=== PATIENT | female | born 1965 | race Caucasian/White ===

== ENCOUNTER → 2021-04-04 10:51 | Outpatient (POV) | payer BC, SELFPAY ==
[2021-04-04 11:26] VITALS: BP 176/80; PULSE 70; RESP 18; O2SAT 97; BMI 28.1
--- NOTE | 2021-04-04 12:40 | HMH.PMCON ---
Assessment and Plan (1) Low back pain Status: Acute Category: Medical Code(s): M54.5 - Low back pain (2) Lumbar radiculopathy Status: Acute Category: Medical Code(s): M54.16 - Radiculopathy, lumbar region (3) Degenerative joint disease (DJD) of lumbar spine Status: Chronic Category: Medical Code(s): M47.816 - Spondylosis without myelopathy or radiculopathy, lumbar region (4) Facet arthropathy, lumbar Status: Chronic Category: Medical Code(s): M47.816 - Spondylosis without myelopathy or radiculopathy, lumbar region (5) Lumbar spondylosis Status: Chronic Category: Medical Code(s): M47.816 - Spondylosis without myelopathy or radiculopathy, lumbar region (6) Neck pain Status: Chronic Category: Medical Code(s): M54.2 - Cervicalgia - Assessment and plan all Dx Assessment and Plan for all problems:: Patient has not had any recent imaging of her lumbar spine. We will schedule her for an MRI of her lumbar spine to determine pathology of her pain. She has not had imaging in greater than 9 years. She has undergone injective therapy in the past with medial branch block/facet joint injections as well as epidurals. She has also had RFA's. She gets significant relief with the injections. She is not interested in oral medications or in surgery. She will continue with home stretching as well as a another short round of physical therapy. She is unable to take anti-inflammatories due to Plavix therapy which is prescribed due to a history of [place]. We will see her back after her MRI to discuss a further plan of care. If her neck pain continues she may need to undergo a cervical MRI in the future. Patient has been instructed to contact the clinic with any concerns before the next appointment. Dr. Alejandra has reviewed this note and agrees with this plan of care. This note was dictated using voice recognition software and make contain errors or omissions. HPI - Data of Consult Patient: new to practice Consult date: 04/04/21 Requesting Physician: Jaqueline Emmanuel APRN Primary Care Provider: Candace Bernardo APRN - Consult Narrative Reason for consult: Chronic low back pain History of present illness: Ms. Pringle is a 55 year old female who presents today for consultation for chronic low back pain. She does have intermittent neck pain as well. She was referred to us by Mari Merrill. Patient says that she was previously seen at a clinic in [place] for chronic low back pain. She did undergo epidural steroid injections as well as medial branch blocks and RFA's. Patient says that her last procedure in [place] was an RFA. Patient has pain in her low back area that is also radiating into her left leg, left groin, and left foot. She reports to be having paresthesia to her second, third, fourth, fifth toe on the left foot. She says sitting too long does cause her leg to have severe numbness. In the past, she was told that she had a herniated disc that was managed with injective therapy. The patient is not interested in oral medications or in surgery. She says that leaning forward worsens her pain. She says when she attempts to bend forward to clean herself after using the restroom, she has significant pain. She was given Robaxin in the past which has not given her much relief. She says her pain was primarily in the left side, however, she is now noticing to be having bilateral hip and groin pain as well. Patient did suffer from a fall in the wintertime, striking her hip when falling. She has not had any imaging since that fall. She says her pain has worsened to her low back area, however, not the hips. She has undergone physical therapy for more than 6 weeks and continues with home stretching. Patient is unable to take anti-inflammatories due to Plavix therapy. She does have a history of an [place]. Her Plavix therapy as prescribed by Dr. Schmitz. Patient says she is unable to hold her grandchildren without having signi
== END ==
PROVIDERS: PCP Nurse Practitioner; Visit Provider Clinical Nurse Specialist Family Health
DX: M54.5 Low back pain (principal); M54.16 Radiculopathy, lumbar region; M47.816 Spondylosis without myelopathy or radiculopathy, lumbar region; M54.2 Cervicalgia
CPT/HCPCS: 99202; G0463

== ENCOUNTER → 2021-04-11 07:52 | Outpatient (CLI) | payer BC, SELFPAY ==
--- NOTE | 2021-04-11 07:54 | MR_ITS ---
PROCEDURE: MR LUMBAR SPINE WO CON CLINICAL INDICATION: BACK PAIN COMPARISON: No exams were available for comparison TECHNIQUE: Multiplanar, multisequence MRI lumbar spine performed without contrast. FINDINGS: Vertebral body heights are maintained.There is no evidence of bone marrow edema or infiltrative process.The conus medullaris terminates at the T12-L1 vertebral body level. Paravertebral soft tissues are unremarkable. Further details by level follow below T12-L1: Bilateral facet joint hypertrophy and small disc bulge causes mild to moderate canal narrowing. There is mild bilateral foraminal narrowing. L1-2: Broad-based disc bulge, bilateral facet joint and ligamentum flavum hypertrophy causes mild canal narrowing. There is mild right foraminal narrowing. Left neural foramina is unremarkable. L2-3: Small broad-based disc bulge and bilateral facet joint hypertrophy is noted causes no significant canal narrowing. There is mild right foraminal narrowing. L3-4: Small broad-based disc bulge at, bilateral facet joint and ligamentum flavum hypertrophy causes moderate canal narrowing with crowding of the nerve roots within the thecal sac. There is moderate to severe bilateral foraminal narrowing. No canal stenosis or neural foraminal narrowing. L4-5: Broad-based disc bulge with annular tear, bilateral facet joint and ligamentum flavum hypertrophy causes mild canal narrowing. There is moderate to severe bilateral foraminal narrowing.. L5-S1: Bilateral facet joint hypertrophy is noted causes posterior thecal sac indentation. Mild bilateral foraminal narrowing. There is no significant canal narrowing. IMPRESSION: Multilevel moderate degenerative changes, worse at L3-4 and L4-5 with moderate to severe bilateral foraminal narrowing as described above. Dictated by: Kathi Christy 04/11/2021 11:11 Kathi Christy in [place] 04/11/2021 11:11
== END ==
PROVIDERS: PCP Nurse Practitioner; Visit Provider Clinical Nurse Specialist Family Health
DX: M54.5 Low back pain (principal)
CPT/HCPCS: 72148; 76376

== ENCOUNTER → 2021-04-18 11:25 | Outpatient (POV) | payer BC, SELFPAY ==
[2021-04-18 11:42] VITALS: BP 179/90; PULSE 64; RESP 18; O2SAT 96; BMI 17.5
--- NOTE | 2021-04-18 12:44 | HMH.PAINSOAP ---
[facility] Pain Management SOAP Note Subjective:: Patient is-year-old white female who presents today for follow-up after an MRI. Patient is being seen in the clinic for degenerative disc disease lumbar spine with lumbar radiculopathy symptoms. Patient is having pain primarily in her low back area with occasional radiation into the left leg. Patient's pain is primarily upon rising from a sitting position and with bending forward and lifting her grandchild. She says that her pain is a 9 out of 10 when bending forward and lifting. She does have to reposition often when standing. She has tried and failed conservative therapies in the past which include physical therapy in the past along with home stretching. She did have more than 6 weeks of physical therapy in the past. Patient is not able to take anti-inflammatories due to anticoagulation therapy. She is on Plavix. Patient will be finishing up her Plavix and will not be continuing the medication, however, she does understand she will need to be off of it 8 days before any injections. She does have pain when bending forward. She has pain with extension and turning at waist. The patient has had medial branch block/facet joint injections in the past and did follow-up with an RFA. She got significant relief for greater than 6 months with the RFA at about 80% relief. She would like to proceed with repeat medial branch blocks. Review of Systems General: No recent weight changes, no fever, no sleep disturbances Respiratory: No cough, , no recurring pulmonary infections Cardiovascular/peripheral vascular: No chest pain, no palpitations, [no edema], no shortness of breath Gastrointestinal: No new onset incontinence, normal bowel movements reported Genitourinary: No new onset incontinence Musculoskeletal: [] Low back pain worse with bending forward Psychiatric: [Normal mood/affect] Neurological: [Denies weakness in extremities], [denies balance issues] Objective:: Physical exam General: Alert and oriented x3, no acute distress, pleasant and cooperative, [on room air] Lungs: Respirations even and unlabored, symmetrical chest expansion Eyes: PERRL Musculoskeletal: Flexion and extension of [] lumbar [spine] somewhat guarded secondary to pain, strength in upper and lower extremities [5/5], [antalgic gait noted], positive Kemps test Neurological: Speech clear, [contact worker equal], no gross sensory deficit Assessment:: Degenerative disc disease lumbar spine with lumbar facet arthropathy and lumbar spondylosis Plan:: We will schedule the patient for medial branch block/facet joint injection at the L3-L4 L4-L5 area bilaterally. She is on Plavix but will be holding this medication. She has been approved to stop the medication by her physician. We will see the patient back in the clinic after medial branch block/facet joint injections to follow-up. She will continue with home stretching. She is unable to take anti-inflammatories due to anticoagulation therapy. Risks and benefits of the procedure have been explained to the patient. Patient would like to proceed with the procedure. Possible side effects of corticosteroids have been discussed with the patient. Patient has been instructed to contact the clinic with any concerns before the next appointment. Dr. Alejandra has reviewed this note and agrees with this plan of care. This note was dictated using voice recognition software and make contain errors or omissions. [facility] History I have reviewed the patient's past medical history: Yes Medical History: Reports:: Hyperlipidemia, Hypertension, Myocardial Infarction *Have you ever received a pneumonia vaccine?: No *Have you received a flu vaccine this season?: Yes Other Surgeries: Yes: Cardiac Catheterization - *Social History Smoking Status: Never smoker Alcohol Intake: never *Occupational Status:: unemployed *Travel in the last 8 weeks: None Family Hx:: No significant family history
== END ==
PROVIDERS: Visit Provider Clinical Nurse Specialist Family Health
DX: M51.36 Other intervertebral disc degeneration, lumbar region (principal); M47.816 Spondylosis without myelopathy or radiculopathy, lumbar region; M54.06 Panniculitis affecting regions of neck and back, lumbar region
CPT/HCPCS: 99212; G0463

== ENCOUNTER 2021-05-06 09:08 | Day surgery (SDC) | payer BC, SELFPAY ==
[2021-05-06 09:20] VITALS: BP 156/66; PULSE 57; RESP 19; TEMP 36.6; O2SAT 98; BMI 28.0
[2021-05-06 09:42] VITALS: BP 136/62; PULSE 57; RESP 18; O2SAT 96
[2021-05-06 09:45] VITALS: BP 107/67; PULSE 54; RESP 18; O2SAT 96
--- NOTE | 2021-05-06 09:58 | HMH.PMPROC ---
- Procedure Date: 05/06/21 Time: 09:58 Anesthesiologist:: Umair Alejandra MD Complications:: None Pre-procedure Diagnosis:: Degenerative disc disease of lumbar spine with lumbar facet arthropathy and lumbar spondylosis Post-procedure Diagnosis:: Same Indications for Procedure:: Patient is a pleasant 55-year-old white female who we have seen for low back pain with lumbar spondylosis and lumbar facet arthropathy. She benefited previously from RF ablation to the facet joint/medial branches of L3-L4 L4-L5 bilaterally. She got 6 months relief from these previous RFA's. This was done at another pain clinic. Her pain has now just started to return. She is off her Plavix. We will do bilateral L3-L4 and L4-L5 medial branch blocks today to see if this helps with her pain symptoms and if she does get benefit which is not long-lasting then we may proceed to RF ablation of the same levels. Procedure Details:: Lumbar medial branch block Informed consent was obtained and the risks and benefits of the procedure was explained to the patient. The back was prepped using ChloraPrep. The skin and subcutaneous tissues were anesthetized using lidocaine. I placed 22-gauge spinal needles into the facet joint/medial branches of L3-L4, L4-L5 bilaterally. Needle placement was confirmed with dye. After this we injected 3 mL bupivacaine 0.25% and Depo-Medrol 20 mg into each facet joint/medial branch of L3-L4, L4-L5 bilaterally. We used a total of 80 mg Depo-Medrol for both levels bilaterally. The patient tolerated the procedure well with no complications. Plan and Disposition:: We'll follow-up with her in 2 weeks. Will reevaluate her symptoms at that time. If she does get benefit but it does not last long then we will proceed with RF ablation to the same levels
[2021-05-06 10:00] VITALS: BP 150/59; PULSE 56; RESP 20; O2SAT 98
== END 2021-05-06 10:01 | disposition home or self-care (01) ==
LOC: SC.PAINP 09:12
PROVIDERS: PCP Nurse Practitioner; Visit Provider Anesthesiology
DX: M51.36 Other intervertebral disc degeneration, lumbar region (principal); M47.816 Spondylosis without myelopathy or radiculopathy, lumbar region; M54.06 Panniculitis affecting regions of neck and back, lumbar region
CPT/HCPCS: 64493; 64494; J1030; Q9966

== ENCOUNTER → 2021-06-09 09:09 | Outpatient (POV) | payer BC, SELFPAY ==
[2021-06-09 09:26] VITALS: BP 204/99; PULSE 48; RESP 18; O2SAT 97; BMI 28.0
--- NOTE | 2021-06-09 12:48 | HMH.PAINSOAP ---
[facility] Pain Management SOAP Note Subjective:: Patient is a 55-year-old white female who presents today for follow-up. She recently underwent a medial branch block at L3-L4 L4-L5 bilaterally. She is being treated for degenerative disc disease lumbar spine with lumbar facet arthropathy and lumbar spondylosis. Patient reports that she got significant relief, at 60% for 5 days following the injections. The patient's pain has returned. She feels a grinding type sensation when leaning forward, extending at her waist and with turning and twisting. She says this pain did subside following the injection. She would like to repeat the medial branch block to these areas in hopes of proceeding with an RFA. She has tried and failed conservative therapies of physical therapy for greater than 6 weeks along with continued home stretching. She has also taken anti-inflammatories in the past, but is no longer taking the medication at the advice of her PCP. The patient has resumed antiinflammatories. She rates her pain a 3 out of 10 with sitting and a 7 or an 8 out of 10 with bending forward. Review of Systems General: No recent weight changes, no fever, no sleep disturbances Respiratory: No cough, no shortness of air, no recurring pulmonary infections Cardiovascular/peripheral vascular: No chest pain, no palpitations, no edema, no shortness of breath Gastrointestinal: No new onset incontinence, normal bowel movements reported Genitourinary: No new onset incontinence Musculoskeletal: Low back pain with worsening pain leaning forward, turning and twisting at waist Psychiatric: [Normal mood/affect] Neurological: [Denies weakness in extremities], [denies balance issues] Objective:: Physical exam General: Alert and oriented x3, no acute distress, pleasant and cooperative, [on room air] Lungs: Respirations even and unlabored, symmetrical chest expansion Eyes: PERRL Musculoskeletal: Flexion and extension of lumbar [spine] somewhat guarded secondary to pain, strength in upper and lower extremities [5/5], [antalgic gait noted], positive Kemps test Neurological: Speech clear, [bellman equal], no gross sensory deficit Assessment:: Degenerative disc disease lumbar spine with lumbar facet arthropathy and lumbar spondylosis Plan:: We will schedule the patient for repeat injection at L3-L4 L4-L5 medial branch block bilaterally. Patient is no longer on anticoagulation therapy. If the patient gets at least 60% relief, we will proceed with RFA. She has tried physical therapy along with continued home stretching and most recently anti-inflammatories. She is not on any anticoagulation therapy. Possible side effects of corticosteroids have been discussed with the patient. Risks and benefits of the procedure have been explained to the patient. Patient would like to proceed with the procedure. Patient has been instructed to contact the clinic with any concerns before the next appointment. Dr. Alejandra has reviewed this note and agrees with this plan of care. This note was dictated using voice recognition software and make contain errors or omissions. [facility] History I have reviewed the patient's past medical history: Yes Medical History: Reports:: Coronary Artery Disease, Hyperlipidemia, Hypertension, Myocardial Infarction, Peripheral Artery Disease, Peripheral Vascular Disease Denies:: Cancer, Diabetes Mellitus Type 1, Diabetes Mellitus Type 2, MRSA, Seizures *Have you ever received a pneumonia vaccine?: No *Have you received a flu vaccine this season?: No Other Medical History: Denies: Blood Transfusion Reaction Other Surgeries: Yes: Cardiac Catheterization, Coronary Stent, Other (eye sx, uterine ablation) Amputation: No Fractures: No - *Social History Smoking Status: Never smoker Alcohol Intake: never *Occupational Status:: unemployed Housing: house *Travel in the last 8 weeks: None Family Hx:: No significant family history
== END ==
PROVIDERS: Visit Provider Clinical Nurse Specialist Family Health
DX: M51.36 Other intervertebral disc degeneration, lumbar region (principal); M47.816 Spondylosis without myelopathy or radiculopathy, lumbar region; M54.06 Panniculitis affecting regions of neck and back, lumbar region
CPT/HCPCS: 99212; G0463

== ENCOUNTER 2021-06-17 08:08 | Day surgery (SDC) | payer BC, SELFPAY ==
[2021-06-17 08:18] VITALS: BP 153/99; PULSE 66; RESP 18; TEMP 36.4; O2SAT 98; BMI 28.0
[2021-06-17 09:02] VITALS: BP 146/74; PULSE 73; RESP 18; O2SAT 98
[2021-06-17 09:04] VITALS: BP 153/75; PULSE 63; RESP 18; O2SAT 97
[2021-06-17 09:16] VITALS: BP 174/98; PULSE 69; RESP 20; O2SAT 97
--- NOTE | 2021-06-17 09:16 | HMH.PMPROC ---
- Procedure Date: 06/17/21 Time: 09:16 Anesthesiologist:: Umair Alejandra MD Complications:: None Pre-procedure Diagnosis:: Degenerative disc disease of lumbar spine with lumbar facet arthropathy and lumbar spondylosis Post-procedure Diagnosis:: Same Indications for Procedure:: Patient is a pleasant 55-year-old white female who we are treating for low back pain with lumbar spondylosis and lumbar facet arthropathy. She got great relief from her previous medial branch blocks. She was 70 to 80% better for 5 to 6 days. We will do a repeat round of medial branch blocks at L3-4 and L4-L5 bilaterally. These will be followed by RF ablation if successful. Procedure Details:: Lumbar medial branch block Informed consent was obtained and the risks and benefits of the procedure was explained to the patient. The back was prepped using ChloraPrep. The skin and subcutaneous tissues were anesthetized using lidocaine. I placed 22-gauge spinal needles into the facet joint/medial branches of L3-L4, L4-L5 bilaterally. Needle placement was confirmed with dye. After this we injected 3 mL bupivacaine 0.25% and Depo-Medrol 20 mg into each facet joint/medial branch of L3-L4, L4-L5 bilaterally. We used a total of 80 mg Depo-Medrol for both levels bilaterally. The patient tolerated the procedure well with no complications. Plan and Disposition:: We will follow-up with this patient in 2 weeks. Will reevaluate her symptoms at that time. If these are successful again we will plan on RF ablation to the facet joints of L3-4 and L4-5 bilaterally.
== END 2021-06-17 09:18 | disposition home or self-care (01) ==
LOC: SC.PAINP 08:09
PROVIDERS: PCP Nurse Practitioner; Visit Provider Anesthesiology
DX: M51.36 Other intervertebral disc degeneration, lumbar region (principal); M47.816 Spondylosis without myelopathy or radiculopathy, lumbar region; M54.06 Panniculitis affecting regions of neck and back, lumbar region; I25.2 Old myocardial infarction; I25.10 Atherosclerotic heart disease of native coronary artery without angina pectoris; I73.9 Peripheral vascular disease, unspecified; E78.5 Hyperlipidemia, unspecified; I10 Essential (primary) hypertension; K21.9 Gastro-esophageal reflux disease without esophagitis
CPT/HCPCS: 64493; 64494; J1040; Q9966

== ENCOUNTER → 2021-07-04 11:15 | Outpatient (POV) | payer BC, SELFPAY ==
[2021-07-04 11:25] VITALS: BP 121/64; PULSE 68; RESP 18; O2SAT 98; BMI 28.7
--- NOTE | 2021-07-04 12:39 | HMH.PAINSOAP ---
[facility] Pain Management SOAP Note Subjective:: Patient is a 55-year-old white female who presents today for follow-up after medial branch block/facet joint injections at L3-L4 L4-L5 bilaterally. Patient is a patient number 2 injection. The patient got 70 to 80% relief for 3 to 4 days following the injection. The patient's pain has returned. The patient says that she was able to stand and turn and twist with less pain following the injections. The patient's pain has returned. She rates her pain a 3 out of 10 with sitting, with movement or extension bending at waist, the pain is a 7 or an 8 out of 10. Patient has tried and failed conservative therapies of physical therapy for more than 6 weeks and continued home stretching. She has taken anti-inflammatories in the past with no significant relief and has used ice and heat therapies with no significant relief. Patient is no longer on anti-inflammatories. Review of Systems General: No recent weight changes, no fever, no sleep disturbances Respiratory: No cough, no shortness of air, no recurring pulmonary infections Cardiovascular/peripheral vascular: No chest pain, no palpitations, no edema, no shortness of breath Gastrointestinal: No new onset incontinence, normal bowel movements reported Genitourinary: No new onset incontinence Musculoskeletal: Low back pain worse with bending forward and extension and twisting at waist Psychiatric: [Normal mood/affect] Neurological: [Denies weakness in extremities], [denies balance issues] Objective:: Physical exam General: Alert and oriented x3, no acute distress, pleasant and cooperative Lungs: Respirations even and unlabored, symmetrical chest expansion Eyes: PERRL Musculoskeletal: Flexion and extension of lumbar [spine] somewhat guarded secondary to pain, [antalgic gait noted], positive Kemps test Neurological: Speech clear, no gross sensory deficit Assessment:: Degenerative disc disease lumbar spine with lumbar facet arthropathy and lumbar spondylosis Plan:: Patient is a 55-year-old white female who is following up after number 2 injection medial branch block/facet joint L3-L4 L4-L5 bilaterally. She got 70 to 80% relief for a few days. The patient's pain has returned. She would like to proceed with an RFA. We will schedule the patient for an RFA L3-L4 L4-L5 bilaterally. She is not on anticoagulation therapy. We will follow up with her after the procedure for reevaluation symptoms. Risks and benefits of the procedure have been explained to the patient. Patient would like to proceed with the procedure. Patient has been instructed to contact the clinic with any concerns before the next appointment. Dr. Alejandra has reviewed this note and agrees with this plan of care. This note was dictated using voice recognition software and make contain errors or omissions. [facility] History I have reviewed the patient's past medical history: Yes Medical History: Reports:: Coronary Artery Disease, Hyperlipidemia, Hypertension, Myocardial Infarction, Peripheral Artery Disease, Peripheral Vascular Disease Denies:: Cancer, Diabetes Mellitus Type 1, Diabetes Mellitus Type 2, MRSA, Seizures *Have you ever received a pneumonia vaccine?: No *Have you received a flu vaccine this season?: No Other Medical History: Denies: Blood Transfusion Reaction Other Surgeries: Yes: Cardiac Catheterization, Coronary Stent, Other (eye sx, uterine ablation) Amputation: No Fractures: No - *Social History Smoking Status: Never smoker Alcohol Intake: never *Occupational Status:: unemployed Housing: house *Travel in the last 8 weeks: None Family Hx:: No significant family history
== END ==
PROVIDERS: Visit Provider Clinical Nurse Specialist Family Health
DX: M51.36 Other intervertebral disc degeneration, lumbar region (principal); M47.816 Spondylosis without myelopathy or radiculopathy, lumbar region; M54.06 Panniculitis affecting regions of neck and back, lumbar region
CPT/HCPCS: 99212; G0463

== ENCOUNTER 2021-07-22 11:23 | Day surgery (SDC) | payer BC, SELFPAY ==
[2021-07-22 11:28] VITALS: BP 139/57; PULSE 66; RESP 18; TEMP 36.3; O2SAT 96; BMI 29.2
[2021-07-22 12:27] VITALS: BP 134/70; PULSE 62; RESP 18; O2SAT 97
[2021-07-22 12:33] VITALS: BP 138/75; PULSE 62; RESP 18; O2SAT 98
--- NOTE | 2021-07-22 12:34 | P.PCN_ITS ---
- Procedure Date: 07/22/21 Time: 12:34 Anesthesiologist:: Umair Alejandra MD Complications:: None Pre-procedure Diagnosis:: Degenerative disc disease of lumbar spine with lumbar spondylosis and lumbar facet arthropathy Post-procedure Diagnosis:: Same Indications for Procedure:: Patient is a pleasant 55-year-old white female who we are treating for low back pain with lumbar spondylosis and lumbar facet arthropathy. She did well following previous medial branch blocks with 80% relief for 3 to 4 days following the injection. She had 2 rounds of successful medial branch block she presents for RF ablation to the facet joints of L3-L4 and L4-5 bilaterally today. Procedure Details:: Lumbar RFA informed consent was obtained and the risk and benefits of the procedure was explained to the patient. Patient was placed prone on the procedure table. The patient was prepped and draped in sterile fashion. C-arm fluoroscopy was used to view the lumbar spine. The skin and subcutaneous tissues were anesthetized using lidocaine. I placed 20-gauge RF needles into the facet joints of L3-L4 and L4-L5 bilaterally. We underwent sensory stimulation. There is good sensory stimulation at 0.8 V. We underwent motor stimulation. There is no motor stimulation at 2 V. We then anesthetized these levels with lidocaine and Depo- Medrol. I used a total of 80 mg Depo-Medrol for both levels. I then burned both levels of L3-4 and L4-L5 bilaterally for 4 minutes at 80 ?C. Patient tolerated the procedure well with no complication. Plan and Disposition:: We will follow-up with her in 2 weeks. Will reevaluate symptoms at that time.
[2021-07-22 12:49] VITALS: BP 131/63; PULSE 54; RESP 18; O2SAT 99
== END 2021-07-22 12:50 | disposition home or self-care (01) ==
LOC: SC.PAINP 11:23
PROVIDERS: PCP Nurse Practitioner; Visit Provider Anesthesiology
DX: M51.16 Intervertebral disc disorders with radiculopathy, lumbar region (principal); M54.06 Panniculitis affecting regions of neck and back, lumbar region; I25.2 Old myocardial infarction; I25.10 Atherosclerotic heart disease of native coronary artery without angina pectoris; I73.9 Peripheral vascular disease, unspecified; E78.5 Hyperlipidemia, unspecified; I10 Essential (primary) hypertension; Z88.0 Allergy status to penicillin
CPT/HCPCS: 64635; 64636; J1040

== ENCOUNTER → 2021-08-11 09:47 | Outpatient (POV) | payer BC, SELFPAY ==
[2021-08-11 10:01] VITALS: BP 132/90; PULSE 78; RESP 18; O2SAT 98; BMI 30.3
--- NOTE | 2021-08-11 12:18 | HMH.PAINSOAP ---
[facility] Pain Management SOAP Note Subjective:: Patient is a 56-year-old white female who presents today for follow-up. Patient recently underwent an RFA at L3-L4 L4-L5 bilaterally. She reports she got no relief with the RFA. She is continuing to have significant pain in the low back area made worse with bending forward. She says that she does work 8-hour days at her job and is unable to stand or walk when she gets home due to the pain. Pain is progressively worsening. She has tried anti-inflammatories along with continued home stretching. She also underwent physical therapy which worsen the patient's pain for greater than 6 weeks. She has had a lumbar epidural steroid injection that did give her some relief at about 60 to 70%. Patient says that she would like to try a repeat lumbar epidural steroid injection. She is having difficulty cleaning herself properly when going to the bathroom due to pain with movement. She says that she got more relief with the epidural steroid injections than with the RFA. She has had 1 lumbar epidural steroid injection in the past. She would like to proceed with a repeat injection. Review of Systems General: No recent weight changes, no fever, no sleep disturbances Respiratory: No cough, no shortness of air, no recurring pulmonary infections Cardiovascular/peripheral vascular: No chest pain, no palpitations, no edema, no shortness of breath Gastrointestinal: No new onset incontinence, normal bowel movements reported Genitourinary: No new onset incontinence Musculoskeletal: Low back pain with radiation into bilateral lower extremities, pain worse with bending forward Psychiatric: [Normal mood/affect] Neurological: [Denies weakness in extremities], [denies balance issues] Objective:: Physical exam General: Alert and oriented x3, no acute distress, pleasant and cooperative Lungs: Respirations even and unlabored, symmetrical chest expansion Eyes: PERRL Musculoskeletal: Flexion and extension of lumbar [spine] somewhat guarded secondary to pain, [antalgic gait noted] Neurological: Speech clear, no gross sensory deficit Assessment:: Degenerative disc disease lumbar spine with lumbar radiculopathy symptoms, lumbar spondylosis and lumbar facet arthropathy Plan:: Patient has tried medial branch blocks and RFA with minimal relief. She has had 1 lumbar epidural steroid injection which gave her 60 to 70% relief for approximately 2 weeks. She would like to proceed with a repeat lumbar epidural steroid injection at L4-L5. In the meantime, we will also schedule the patient for psychological evaluation, as spinal cord stimulation may be an option for her in the future if she does not get relief with the epidural. We did discuss in detail the device. She would like to proceed with the trial if she does have an appropriate psychological evaluation. She is tried physical therapy for more than 6 weeks and continues with home stretching. She is also tried anti-inflammatories. We will plan to follow-up with the patient after her injection and psychological evaluation to discuss a further plan of care. Patient has been advised that she is not a neurosurgical candidate at this time. We will schedule the patient for the lumbar epidural steroid injection L4-L5. She is not on any anticoagulation therapy and is not diabetic. This will be the patient's #2 lumbar epidural steroid injection. Possible side effects of corticosteroids have been discussed with the patient. Risks and benefits of the procedure have been explained to the patient. Patient would like to proceed with the procedure. Patient has been instructed to contact the clinic with any concerns before the next appointment. Dr. Alejandra has reviewed this note and agrees with this plan of care. This note was dictated using voice recognition software and make contain errors or omissions. [facility] History I have reviewed the patient's past medical history: Yes M
== END ==
PROVIDERS: Visit Provider Clinical Nurse Specialist Family Health
DX: M51.16 Intervertebral disc disorders with radiculopathy, lumbar region (principal); M54.06 Panniculitis affecting regions of neck and back, lumbar region; M47.896 Other spondylosis, lumbar region
CPT/HCPCS: 99212; G0463

== ENCOUNTER 2021-09-02 12:54 | Day surgery (SDC) | payer BC, SELFPAY ==
[2021-09-02 12:58] VITALS: BP 144/74; PULSE 65; RESP 18; TEMP 36.2; O2SAT 97; BMI 30.7
[2021-09-02 13:20] VITALS: BP 139/87; PULSE 77; RESP 18; O2SAT 97
[2021-09-02 13:21] VITALS: BP 139/87; PULSE 79; RESP 18; O2SAT 97
--- NOTE | 2021-09-02 13:25 | HMH.PMPROC ---
- Procedure Date: 09/02/21 Time: 13:25 Anesthesiologist:: Umair Alejandra MD Complications:: None Pre-procedure Diagnosis:: Degenerative disc disease of lumbar spine with lumbar radiculopathy symptoms Post-procedure Diagnosis:: Same Indications for Procedure:: Patient is a pleasant 56-year-old white female who we are treating for low back pain with lumbar radiculopathy symptoms. She does get some relief from these injections however is not been long-lasting. She did have lumbar RFA at her last visit which did not give her much relief of her symptoms. We will do a repeat lumbar epidural steroid injection today to see if this gives her some relief of her symptoms. We will also set her up for psychological evaluation in anticipation of spinal cord stimulator trial. Procedure Details:: Informed consent was obtained and the risk and benefits of the procedure was explained to the patient. The patient was taken to the procedure room. The patient was placed prone on the procedure table. The patient was prepped and draped in sterile fashion. C-arm fluoroscopy was used to view the lumbar spine. Skin and subcutaneous tissues were anesthetized using lidocaine. I placed an 18-gauge epidural needle and advanced into the L4-L5 interspace using fluoroscopic guidance and [id number] to air. After confirmation of needle placement in the epidural space with dye I injected 2 mL of lidocaine 1.5% with Depo-Medrol 80 mg. Patient tolerated the procedure well with no complications. Plan and Disposition:: We will follow-up with her in 2 weeks. Will reevaluate symptoms at that time. We will get her information on spinal cord stimulation and set her up for psychological evaluation. If this injection does not give her long-lasting relief we will plan on spinal cord stimulator trial.
[2021-09-02 13:35] VITALS: BP 128/63; PULSE 64; RESP 20; O2SAT 95
== END 2021-09-02 13:36 | disposition home or self-care (01) ==
LOC: SC.PAINP 12:55
PROVIDERS: PCP Nurse Practitioner; Visit Provider Anesthesiology
DX: M51.16 Intervertebral disc disorders with radiculopathy, lumbar region (principal); I25.2 Old myocardial infarction; I25.10 Atherosclerotic heart disease of native coronary artery without angina pectoris; I73.9 Peripheral vascular disease, unspecified; E78.5 Hyperlipidemia, unspecified; I10 Essential (primary) hypertension; Z72.0 Tobacco use; Z79.899 Other long term (current) drug therapy; Z88.0 Allergy status to penicillin
CPT/HCPCS: 62323; J1040; Q9966

== ENCOUNTER → 2021-09-22 10:24 | Outpatient (POV) | payer BC, SELFPAY ==
[2021-09-22 10:35] VITALS: BP 119/80; PULSE 68; RESP 18; O2SAT 96; BMI 30.7
--- NOTE | 2021-09-22 12:02 | HMH.PAINSOAP ---
[facility] Pain Management SOAP Note Subjective:: Patient is a 56-year-old white female who presents today for follow-up after a lumbar epidural steroid injection. Patient has had injective therapy with medial branch blocks/lumbar epidural steroid injections, and RFA. She has gotten short-term relief, but pain does return. She is having pain in her low back area with radiation into bilateral lower extremities. She says bending forward makes pain worse. She is having difficulty cleaning herself properly after bowel movements due to turning and twisting. She says this is her greatest concern. While she does have pain, she says that it is affecting her mental health as well. She is having significant pain today at about a 7 or 8 out of 10 when moving. She did discuss spinal cord stimulation with Dr. Alejandra for long-term relief. She has tried oral medications along with previous surgical intervention lumbar spine. She is no longer considered a surgical candidate. She has tried physical therapy for more than 6 weeks in the past and continues with home stretching. Injective therapy has not given her any long-term relief. She did undergo psychological evaluation and was considered an appropriate candidate. She is here today to discuss proceeding with the stimulator trial. Review of Systems General: No recent weight changes, no fever, no sleep disturbances Respiratory: No cough, no shortness of air, no recurring pulmonary infections Cardiovascular/peripheral vascular: No chest pain, no palpitations, no edema, no shortness of breath Gastrointestinal: No new onset incontinence, normal bowel movements reported Genitourinary: No new onset incontinence Musculoskeletal: Low back pain made worse with bending forward, difficulty with perineal care due to pain Psychiatric: [Normal mood/affect] Neurological: [Denies weakness in extremities], [denies balance issues] Objective:: Physical exam General: Alert and oriented x3, no acute distress, pleasant and cooperative Lungs: Respirations even and unlabored, symmetrical chest expansion Eyes: PERRL Musculoskeletal: Flexion and extension of lumbar [spine] somewhat guarded secondary to pain, [antalgic gait noted] Neurological: Speech clear, no gross sensory deficit Assessment:: Degenerative disc disease lumbar spine with lumbar radiculopathy symptoms, facet arthropathy and lumbar spondylosis Plan:: We will schedule the patient for the spinal cord stimulator trial. She has tried conservative therapies of physical therapy, home stretching, oral medications, and injections. She has had surgical intervention to her lumbar spine in the past and continues to have pain. She is not considered a neurosurgical candidate at this time. She is not on any anticoagulation therapy and is not diabetic. We will schedule her for spinal cord stimulator trial and plan to see her back afterwards for further evaluation of symptoms. We did discuss in detail the procedure today. Psychological evaluation did deemed the patient appropriate candidate to proceed. Risks and benefits of the procedure have been explained to the patient. Patient would like to proceed with the procedure. Patient has been instructed to contact the clinic with any concerns before the next appointment. Dr. Alejandra has reviewed this note and agrees with this plan of care. This note was dictated using voice recognition software and make contain errors or omissions. [facility] History I have reviewed the patient's past medical history: Yes Medical History: Reports:: Carotid Stenosis, Coronary Artery Disease, Hyperlipidemia, Hypertension, Myocardial Infarction, Peripheral Artery Disease, Peripheral Vascular Disease Denies:: Cancer, Diabetes Mellitus Type 1, Diabetes Mellitus Type 2, MRSA, Seizures *Have you ever received a pneumonia vaccine?: No *Have you received a flu vaccine this season?: Yes Other Medical History: Denies: Blood Transfusion Reaction O
== END ==
PROVIDERS: Visit Provider Clinical Nurse Specialist Family Health
DX: M51.16 Intervertebral disc disorders with radiculopathy, lumbar region (principal); M54.02 Panniculitis affecting regions of neck and back, cervical region; M47.896 Other spondylosis, lumbar region
CPT/HCPCS: 99212; G0463

== ENCOUNTER → 2021-11-07 13:55 | Outpatient (CLI) | payer BC, SELFPAY ==
[2021-11-07 14:17] LABS: Basophils # 0.1 K/mm3 (0-0.2); Basophils % 0.9 % (0.1-2.0); Eosinophils # 0.2 K/mm3 (0.0-0.4); Hematocrit 44.1 % (37.0-47.0); Lymphocytes % 25.4 % (10-50); Mean Corpuscular HGB Conc 31.7 g/dL (31.8-35.4); Mean Corpuscular Hemoglobin 28.8 pg (27.0-31.2); Mean Platelet Volume 8.4 fl (7.4-10.4); Monocytes # 0.6 K/mm3 (0.1-1.0); Monocytes % 7.4 % (1.7-9.3); Neutrophils # 5.1 K/mm3 (1.8-7.8); Neutrophils % 63.3 % (37.0-80.0); Platelet Count 315 K/mm3 (142-424); Red Blood Count 4.85 M/mm3 (4.20-5.40); Red Cell Distribution Width 13.6 % (11.5-17.5)
[2021-11-07 15:14] LABS: Blood Urea Nitrogen 16 mg/dl (7-17); Chloride 107 mmol/L (98-107); Estimated Glomerular Filt Rate 74 ml/min (>60); GFR (African American) 89 ML/MIN (>60); Glucose 95 mg/dl (74-100); Potassium 4.3 mmoL/L (3.5-5.1)
[2021-11-07 17:04] LABS: Anion Gap 10.3 mEq/L (5-15); Calcium 9.2 mg/dl (8.4-10.2); Carbon Dioxide 28 mmol/L (22.0-30.0); Sodium 141 mmol/L (136-145)
== END ==
PROVIDERS: PCP Pediatrics; Visit Provider Anesthesiology
DX: Z01.812 Encounter for preprocedural laboratory examination (principal); Z11.52 Encounter for screening for COVID-19; M51.36 Other intervertebral disc degeneration, lumbar region
CPT/HCPCS: 36415; 80048; 85025; C9803; U0003; U0005

== ENCOUNTER 2021-11-09 11:01 | Day surgery (SDC) | payer BC, SELFPAY ==
[2021-11-07 11:52] VITALS: BMI 30.5
[2021-11-09 11:26] VITALS: BP 121/65; PULSE 82; RESP 16; TEMP 36.4; O2SAT 100
--- NOTE | 2021-11-09 12:27 | P.PN_ITS ---
[facility] Anesthesia Checklist - Patient Identification Patient Identification: Arm Band - Structural Data Admitted From: Home Planned Operative Procedure/s: Trial Neurostimulator Lead Placement Consent for Planned Operative Procedure(s) Verified: Yes Verified Documents: Surgical Consent, History and Physical - NPO Status Verified Time NPO: 00:00 - Additional verifications Anesthesia Reactions: Yes (pt states I do not wake up well from it ) Hx Blood Transfusions: No Blood Transfusion Reaction: No - Airway Assessment C-Spine Mobility Assessed: Yes (mp2) TMJ Mobility Assessed: Yes Dentition: Good Dentition - Neurological Assessment Level of Consciousness: Awake, Alert - Anesthesia Plan Anesthesia Risk discussed: Yes Anesthesia Plan: Verified ASA Class: III Anesthesia Type: MAC [facility] History I have reviewed the patient's past medical history: Yes Medical History: Reports:: Carotid Stenosis, Coronary Artery Disease, Hyperlipidemia, Hypertension, Myocardial Infarction, Peripheral Artery Disease, Peripheral Vascular Disease Denies:: Cancer, Diabetes Mellitus Type 1, Diabetes Mellitus Type 2, Internal Pacemaker, MRSA, Seizures *Have you ever received a pneumonia vaccine?: No *Have you received a flu vaccine this season?: Yes Other Medical History: Denies: Blood Transfusion Reaction Anesthesia experience/problems:: nac Other Surgeries: Yes: Cardiac Catheterization, Coronary Stent, Other (eye sx, uterine ablation). No: Pacemaker Amputation: No Fractures: No - *Social History Last grade of school completed: High school graduate Smoking Status: Never smoker Alcohol Intake: never Substance Use Type: denies use *Occupational Status:: unemployed Housing: house Household Members: none *Travel in the last 8 weeks: None Family Hx:: No significant family history
[2021-11-09 14:31] VITALS: BP 97/56; PULSE 70; RESP 16; TEMP 36.4; O2SAT 97
[2021-11-09 14:46] VITALS: BP 89/60; PULSE 65; RESP 16; O2SAT 99
--- NOTE | 2021-11-09 14:54 | PC.NURSE ---
trial rep at bedside
[2021-11-09 15:01] VITALS: BP 107/69; PULSE 55; RESP 16; O2SAT 99
[2021-11-09 15:18] VITALS: BP 107/70; PULSE 56; RESP 16; O2SAT 100
--- NOTE | 2021-11-09 15:48 | P.OP_ITS ---
Date of procedure: 11/09/21 Pre-op Diagnosis:: Degenerative disc disease of lumbar spine with lumbar radiculopathy symptoms and facet arthropathy with lumbar spondylosis Post-op Diagnosis:: Same Procedure performed:: Spinal cord stimulator lead placement epidural x2 for spinal cord stimulator trial Surgeon:: Umair Alejandra MD LINK KNITTING MACHINE OPERATOR:: Obinna Beverly Anesthesia: MAC Estimated blood loss (mL): 1 Clinical Note:: Patient is a pleasant 56-year-old white female who we are treating for low back pain with lumbar radiculopathy symptoms. She has increasing pain in her back radiating to both buttocks and down her left leg. She has tried and failed all conservative therapy including injections, oral medications, physical therapy and she is not a surgical candidate. She has had a successful psychological evaluation. She presents for spinal cord stimulator trial today. Operative findings:: None Operative note:: Informed consent was obtained the risk and benefits of the procedure were explained to the patient. Patient was taken to the operating room placed prone on the procedure table. She was prepped and draped in sterile fashion. C-arm fluoroscopy was used to view the lumbar spine. The skin and subcutaneous tissues were anesthetized using lidocaine. A 17-gauge epidural needle was inserted advanced into the L2-L3 interspace. After confirmation needle placement in the epidural space stimulating lead was inserted and advanced very easily to the T7-T8-T9 vertebral body. A second needle was then inserted advanced again into the L2-L3 interspace. Again after confirmation of needle placement in the epidural space a second stimulating lead was inserted and advanced again very easily to the T7-T8-T9 vertebral body. Leads were checked in AP and lateral views. The needles and stylets were removed. The leads were secured in place. Patient tolerated the procedure well with no complications. Patient was programmed by the [employer] sales representative with good stimulation in all areas of pain. Patient was discharged home neurologically intact with good relief of pain symptoms. Plan and disposition: We will follow-up with this patient and 1 week for lead pull. We will continually follow-up with her throughout the week and make changes accordingly. We will give her Bactrim DS 1 tablet twice a day for 5 days. If she has any problems questions she is to call us back in the pain clinic. Condition: stable Disposition: PACU Complications:: None
== END 2021-11-09 15:18 | disposition home or self-care (01) ==
LOC: OR 11:03
PROVIDERS: PCP Nurse Practitioner; Visit Provider Anesthesiology
PROC: (CPT 63650; principal; 2021-11-09 12:30)
DX: M47.896 Other spondylosis, lumbar region (principal); M51.16 Intervertebral disc disorders with radiculopathy, lumbar region; M54.06 Panniculitis affecting regions of neck and back, lumbar region; I65.29 Occlusion and stenosis of unspecified carotid artery; E78.5 Hyperlipidemia, unspecified; I10 Essential (primary) hypertension; I25.2 Old myocardial infarction; I73.9 Peripheral vascular disease, unspecified; Z88.0 Allergy status to penicillin; Z79.82 Long term (current) use of aspirin; Z79.899 Other long term (current) drug therapy
CPT/HCPCS: 63650 ×2; 96374; C1778

== ENCOUNTER → 2021-11-17 14:50 | Outpatient (POV) | payer BC, SELFPAY ==
[2021-11-17 15:03] VITALS: BP 127/60; PULSE 93; O2SAT 95; BMI 30.2
--- NOTE | 2021-11-17 15:31 | HMH.PAINSOAP ---
[facility] Pain Management SOAP Note Subjective:: This patient is a very pleasant 56-year-old white female who presents today for follow-up. She is currently being treated for degenerative disease of lumbar spine with lumbar radiculopathy. She recently underwent on a cord stimulator trial but unfortunately the patient states that she got very minimal pain relief noticing approximately 10% pain relief in her low back pain symptoms. States that her worst pain is with lumbar extension such as when she has to wipe after using the bathroom. She states that she did not experience any relief in her pain symptoms undergoing the spinal cord stimulator trial. She rates her pain today as a 4 out of 10. Objective:: General: Alert and oriented x3, no acute distress, pleasant and cooperative Lungs: Resps E/U, symmetric chest expansion Eyes: PERRL Musculoskeletal: limited flexion and extension of the lumbar spine secondary to pain. Deep tendon reflexes were normal in bilateral lower extremities. Motor exam was grossly intact in the bilateral lower extremities, antalgic gait noted. There is tenderness to palpation over bilateral trochanteric bursa's Neurological: Speech is clear, grain spouter equal, no gross sensory deficits Assessment:: Trochanteric bursitis bilaterally degenerative disc disease of the lumbar spine with lumbar radiculopathy and lumbar facet arthropathy and lumbar spondylosis Plan:: Spinal cord stimulator leads were removed today with the tips intact. With the patient that we will schedule her for bilateral trochanteric bursa injections under fluoroscopy at the next clinic visit in 2 to 3 weeks. I will also schedule her for tramadol 50 mg 1 tablet p.o. nightly #30 for 1 month supply and I discussed with the patient to continue [id number] Tylenol as needed with a daily max dose of 3 g. I will also refer her to physical therapy for her degenerative disc disease of the lumbar spine with lumbar facet arthropathy, spondylosis, and lumbar radiculopathy symptoms as well as trochanteric bursitis bilaterally and myofascial pain syndrome of the lumbar paraspinal muscles bilaterally. We will follow-up with this patient for the above injection to be performed in 2 to 3 weeks. Hugh and prior directions reviewed and appropriate. ORT was performed today and the patient was deemed low risk. [facility] History Medical History: Reports:: Carotid Stenosis, Coronary Artery Disease, Hyperlipidemia, Hypertension, Myocardial Infarction, Peripheral Artery Disease, Peripheral Vascular Disease Denies:: Cancer, Diabetes Mellitus Type 1, Diabetes Mellitus Type 2, Internal Pacemaker, MRSA, Seizures *Have you ever received a pneumonia vaccine?: No *Have you received a flu vaccine this season?: No Other Medical History: Denies: Blood Transfusion Reaction Other Surgeries: Yes: Cardiac Catheterization, Coronary Stent, Other (eye sx, uterine ablation). No: Pacemaker Amputation: No Fractures: No - *Social History Smoking Status: Never smoker Alcohol Intake: never Substance Use Type: denies use *Occupational Status:: unemployed Housing: house Household Members: none *Travel in the last 8 weeks: None Family Hx:: No significant family history
== END ==
PROVIDERS: Visit Provider Anesthesiology Pain Medicine
DX: M70.62 Trochanteric bursitis, left hip (principal); M70.61 Trochanteric bursitis, right hip; M51.16 Intervertebral disc disorders with radiculopathy, lumbar region; M54.06 Panniculitis affecting regions of neck and back, lumbar region; M47.896 Other spondylosis, lumbar region
CPT/HCPCS: 99212; G0463

== ENCOUNTER 2021-12-02 09:24 | Day surgery (SDC) | payer BC, SELFPAY ==
[2021-12-02 09:34] VITALS: BP 132/97; BP 133/98; BP 147/66; PULSE 60; PULSE 63; PULSE 67; RESP 16; RESP 20; TEMP 36.3; O2SAT 100; O2SAT 98; O2SAT 99; BMI 30.7
--- NOTE | 2021-12-02 09:59 | HMH.PMPROC ---
- Procedure Date: 12/02/21 Time: 09:59 Anesthesiologist:: Umair Alejandra MD Complications:: None Pre-procedure Diagnosis:: Trochanteric bursitis Post-procedure Diagnosis:: Same Indications for Procedure:: Patient is a pleasant 56-year-old white female who we are treating for bilateral trochanteric bursitis. She failed previous spinal cord stimulator trial and it was thought that most of her pain was bursitis in both hips. She does have trouble when she is in a seated position with pain over both hips. She is doing physical therapy. She is tender over both trochanteric bursa's. We will plan on bilateral trochanteric bursa injections today to help with her pain symptoms. Procedure Details:: My bilateral trochanteric bursa injection Informed consent was obtained and the risk and benefits of the procedure was explained to the patient. The patient was taken to the procedure room and placed prone on the procedure table. Both hips were prepped using ChloraPrep. The skin and subcutaneous tissues were anesthetized using lidocaine. A 22-gauge spinal needle was inserted and advanced into the greater trochanter on the left side. Needle placement was confirmed with dye. We then injected 5 mL bupivacaine 0.25% Depo-Medrol 40 mg into the left trochanteric bursa. The same was done for the right side. A 22-gauge spinal needle was inserted and advanced into the greater trochanter on the right side. Needle placement was confirmed with dye. We then injected 5 mL bupivacaine 0.25% Depo-Medrol 40 mg into the right trochanteric bursa. Patient tolerated the procedure well with no complications. Plan and Disposition:: We will follow-up with her in 2 weeks. Will reevaluate symptoms at that time.
[2021-12-02 10:25] VITALS: BP 138/75; PULSE 58; RESP 20; O2SAT 98
== END 2021-12-02 10:26 | disposition home or self-care (01) ==
LOC: SC.PAINP 09:25
PROVIDERS: PCP Pediatrics; Visit Provider Anesthesiology
DX: M70.62 Trochanteric bursitis, left hip (principal); M70.61 Trochanteric bursitis, right hip; I10 Essential (primary) hypertension; Z88.0 Allergy status to penicillin
CPT/HCPCS: 20610; 77002; J1040; Q9966

== ENCOUNTER → 2021-12-29 10:07 | Outpatient (POV) | payer BC, SELFPAY ==
[2021-12-29 10:16] VITALS: BP 136/60; PULSE 90; RESP 20; O2SAT 96; BMI 30.7
--- NOTE | 2021-12-29 11:16 | HMH.PAINSOAP ---
[facility] Pain Management SOAP Note Subjective:: Patient is a pleasant 56-year-old female who is here for a follow up after bilateral greater trochanteric bursa injection on December 02, 2021. Patient is currently being treated for degenerative disc disease of lumbar spine with lumbar radiculopathy symptoms, spinal stenosis with neurogenic claudication, bilateral hip pain, bilateral greater trochanteric bursitis. After the procedure, patients reports 80 to 90% relief and rates pain today at 2 out of 10. Patient denies any issues after the procedure. Patient states that she did not get any relief until about 4 days after the injection. She has been able to increase her activity since injection. Today, patient states that even though outside of her hip is gotten better, she still having significant issues with her ADLs. Patient states that she has been having trouble bending down to clean herself. She is currently doing physical therapy to increase her mobility. She feels like she has been having issues with work because of this pain. She feels like most of the pain is around her anterior hip/groin area. We have tried her on a spinal cord stimulator which helped her low back pain did not help her hip pain. She has not been worked up for any arthritis of her hips and has not seen Ortho. Denies any recent falls or traumas. For pain, she is taking Flexeril at bedtime and Tylenol throughout the day. She is not on any scheduled medications. Drug screens have been reviewed and appropriate. Review of Systems: General: No recent weight changes, no fever, no sleep disturbances Respiratory: No cough, no shortness of air, no recurring pulmonary infections Cardiovascular/peripheral vascular: No chest pain, no palpitations, no edema, no shortness of breath Gastrointestinal: No new onset incontinence, normal bowel movements reported Genitourinary: No new onset incontinence Musculoskeletal: Bilateral hip pain Psychiatric: [Normal mood/affect] Neurological: [Denies weakness in extremities], [denies balance issues] Objective:: Physical Exam: General: Alert and oriented x3, no acute distress, pleasant and cooperative, [on room air] Lungs: Respirations even and unlabored, symmetrical chest expansion Eyes: PERRL Musculoskeletal: Flexion and extension of lumbar [spine] somewhat guarded secondary to pain, [antalgic gait noted]; bilateral SI are negative for CARISA, Richard's, Austin's, Gaenslen's, compression, and distraction. Neurological: Speech clear, no gross sensory deficit Assessment:: Degenerative disc disease of lumbar spine with lumbar radiculopathy symptoms Spinal stenosis with neurogenic claudication Chronic bilateral hip pain Bilateral greater trochanteric bursitis Plan:: Patient states that she has gotten better since her bilateral greater trochanteric bursa injections. Has been able to increase her activity since injection. She still having issues with the full range of motion of her hips and has been having trouble with her ADLs. She is continuing to go to physical therapy to help with some of her mobility. She has been having issues at work as well because of this bilateral hip pain. She says that she may need to be in disability for short term until she can function more independently. She has not seen ortho. Her pain is mostly around her anterior bilateral hips and feels like they are grinding. SI exam is negative. I will order a bilateral hip x-ray and pelvis to further evaluate her bilateral hip pain. We will most likely refer the patient to orthopedics for further evaluation. Patient is to continue going to physical therapy. Follow-up in 2 weeks Patient has been instructed to contact the clinic with any concerns before the next appointment. Dr. Alejandra has reviewed this note and agrees with this plan of care. This note was dictated using voice recognition software and make contain errors or omissions. [facility] History Medical History: Report
== END ==
PROVIDERS: Visit Provider Student in an Organized Health Care Education/Training Program
DX: M51.16 Intervertebral disc disorders with radiculopathy, lumbar region (principal); M48.00 Spinal stenosis, site unspecified; G95.19 Other vascular myelopathies; M25.552 Pain in left hip; M25.551 Pain in right hip; G89.29 Other chronic pain; M70.62 Trochanteric bursitis, left hip; M70.61 Trochanteric bursitis, right hip
CPT/HCPCS: 99212; G0463

== ENCOUNTER → 2021-12-29 10:46 | Outpatient (CLI) | payer BC, SELFPAY ==
--- NOTE | 2021-12-29 10:50 | XR_ITS ---
FINAL REPORT CLINICAL HISTORY: SONU HIP PAIN FINDINGS: LEFT HIP 2 views of the left hip are obtained. There is no acute fracture or dislocation. There are mild degenerative changes. A chronic calcification is seen adjacent to the left iliac wing. There is no acute soft tissue abnormality. IMPRESSION: No acute bony abnormality. Reviewed, Interpreted and Dictated by Marquis Hines III, MD Transcribed by Shy Sánchez Authenticated by Marquis Hines III, MD on 12/29/2021 12:15:36 PM [facility]
--- NOTE | 2021-12-29 10:50 | XR_ITS ---
FINAL REPORT CLINICAL HISTORY: SONU HIP PAIN FINDINGS: RIGHT HIP Two views of the right hip demonstrate no acute fracture or dislocation. There are mild degenerative changes. The visualized bony structures are well aligned. No soft tissue abnormality is seen. IMPRESSION: No acute bony abnormality. Reviewed, Interpreted and Dictated by Marquis Hines III, MD Transcribed by Shy Sánchez Authenticated by Marquis Hines III, MD on 12/29/2021 12:15:45 PM [facility]
== END ==
PROVIDERS: PCP Pediatrics; Visit Provider Student in an Organized Health Care Education/Training Program
DX: M25.552 Pain in left hip (principal); M25.551 Pain in right hip; R10.2 Pelvic and perineal pain
CPT/HCPCS: 73502

== ENCOUNTER → 2022-01-12 09:44 | Outpatient (POV) | payer BC, SELFPAY ==
[2022-01-12 10:17] VITALS: BP 136/84; PULSE 85; RESP 18; TEMP 36.7; O2SAT 100; BMI 31.4
--- NOTE | 2022-01-12 21:16 | HMH.PAINSOAP ---
[facility] Pain Management SOAP Note Subjective:: Patient is a pleasant 56-year-old female who presents today for follow-up. Patient is currently being treated for degenerative disc disease of the lumbar spine with lumbar radiculopathy symptoms, spinal stenosis with neurogenic claudication, bilateral hip pain, bilateral greater trochanteric bursitis. We have been managing this patient since March 2021. Patient continues to have low back pain that radiates to bilateral lower extremities. We have tried two medial branch blocks at L3-L4 and L4-L5, lumbar RFA, epidural steroid injections and a spinal cord stimulator trial. Patient has failed all of these interventions and had minimal relief. Patient is currently doing physical therapy to increase mobility of her low back. More recently, we have tried a bilateral greater trochanteric bursa injection on December 02, 2021. Patient states that this injection helped increase her mobility but she still continues to have pain around her mid low back especially when she bends down. She states that she cannot tolerate any full activities such as sitting, standing, and walking. Her pain has been so severe that she has been having issues with her ADLs. When I last saw this patient, I ordered a bilateral hip x-ray and pelvis to further evaluate her bilateral hip pain. Her SI exam was negative. Her bilateral hip x-ray shows mild osteoarthritis in bilateral hips. She is still wanting referral to Ortho. She rates her pain today as 4 out of 10. For pain she takes Tylenol. Review of Systems: General: No recent weight changes, no fever, no sleep disturbances Respiratory: No cough, no shortness of air, no recurring pulmonary infections Cardiovascular/peripheral vascular: No chest pain, no palpitations, no edema, no shortness of breath Gastrointestinal: No new onset incontinence, normal bowel movements reported Genitourinary: No new onset incontinence Musculoskeletal: Low back pain Psychiatric: [Normal mood/affect] Neurological: [Denies weakness in extremities], [denies balance issues] Objective:: Physical Exam: General: Alert and oriented x3, no acute distress, pleasant and cooperative, [on room air] Lungs: Respirations even and unlabored, symmetrical chest expansion Eyes: PERRL Musculoskeletal: Flexion and extension of [lumbar] [spine] somewhat guarded secondary to pain, [antalgic gait noted]; tender to palpation on lumbar facet joints at L4-L5 and L5-S1. Has tenderness around the coccyx area as well. Neurological: Speech clear, no gross sensory deficit Assessment:: Degenerative disc disease of the lumbar spine Radiculopathy symptoms, spinal stenosis neurogenic claudication, chronic bilateral hip pain, bilateral greater trochanteric bursitis, osteoarthritis of the bilateral hips Plan:: Patient continues to have low back pain that radiates to bilateral lower extremities. We have tried several interventions such as medial branch blocks, RFA, epidural steroid injection, and a spinal cord stimulator trial. Even with these, patient continues to have significant pain in her low back. She continues to do physical therapy to increase her mobility. More recently, we tried a bilateral greater trochanteric bursa injection that provided some relief. Patient was able to increase her activity after this injection. Her bilateral hip x-ray shows mild arthritic changes. Patient would still like us to refer the patient to orthopedics. Additionally, patient and the family member in the room state that they are not satisfied with the care that they are getting from us. We will follow-up with this patient as needed. Patient has been instructed to contact the clinic with any concerns before the next appointment. Dr. Alejandra has reviewed this note and agrees with this plan of care. This note was dictated using voice recognition software and make contain errors or omissions. [facility] History Medical History: Reports:: Carotid Steno
== END ==
PROVIDERS: Visit Provider Student in an Organized Health Care Education/Training Program
DX: M51.16 Intervertebral disc disorders with radiculopathy, lumbar region (principal); M48.062 Spinal stenosis, lumbar region with neurogenic claudication; M25.552 Pain in left hip; M25.551 Pain in right hip; G89.29 Other chronic pain; M70.62 Trochanteric bursitis, left hip; M70.61 Trochanteric bursitis, right hip; M16.0 Bilateral primary osteoarthritis of hip
CPT/HCPCS: 99212; G0463

== ENCOUNTER 2022-01-19 09:00 | Outpatient (RCR) | payer BC, SELFPAY ==
--- NOTE | 2021-11-23 10:34 | HMH.PTOPEV ---
PT Outpatient Evaluation Rehab PT Outpatient Evaluation Start: 11/23/21 09:01 Freq: Status: Active Protocol: Document 11/23/21 09:22 KRISTY (Rec: 11/23/21 10:34 KRISTY [id number]) Electronically Signed By Sabino Galicia, PT 11/23/21 09:22 Outpatient Therapy Subjective History Subjective History Pt reports h/o chronic LBP for 10+ yrs, insidious onset, reports exacerbation w/bending ,lifting. Pt reports left> right sided LBP, with L>R LE radicular s/s from hips to toes. Recent MRI has revealed severe L3-5 DDD, disc herniations. Chief Complaint Pain,Stiff,Paresthesia, Weakness Symptom Type Ache,Sharp,Dull,Numbness, Tingling Symptoms Relieved By Nothing Symptoms Aggravated By Standing,Bending/Stooping, Physical Activity,Walking, Lifting Prior Functional Limitations Lifting,Housework,Standing, Walking,Bending/Stooping Current Functional Limitations Lifting,Housework,Standing, Walking,Bending/Stooping Symptom Description Constant but Variable Level of pain today (0-10) 4 Pain scale - at its best (0-10) 3 Pain scale - at its worst (0-10) 10 Lumbopelvic Eval Posture Thoracic Spine Posture Standing Position Neutral Lumbar Spine Posture Standing Position Flattened Gait Observation General Gait Pattern Observation Antalgic Gait Palapation tenderness bilateral lumbar spinal tenderness Yes: 3/4 paraspinal tenderness Yes: 3/4 buttock tenderness Yes: 3/4 Lumbar/Sacral Palpation Findings Tenderness,Trigger Point, Muscle Guarding Accessory Movement L-spine Vertebrae Accessory Movements [employer] [place] that Elicit Symptoms L2 bilateral L3 bilateral L4 bilateral L5 bilateral Range of Motion Lumbar Spine Active Flexion Range of 0-47 Motion (degrees) Lumbar Spine Active Extension Range of 0 Motion (degrees) Left Lumbar Spine Lateral Flexion Active 0-21 Range of Motion (degrees) Right Lumbar Spine Lateral Flexion 0-18 Active Range of Motion (degrees) Lumbar Spine ROM Limitations Pain Manual Muscle Test Left Knee Extension Strength Grade 5 Normal Knee Flexion Strength Grade 4 Good Hip Flexion Strength Grade 4- Good- Extensor Hallucis Longus Strength Grad
== END 2022-01-19 09:05 | disposition home or self-care (01) ==
LOC: PT 09:00
PROVIDERS: PCP Pediatrics; Visit Provider Anesthesiology Pain Medicine
DX: M54.50 Low back pain, unspecified (principal); M25.552 Pain in left hip; M25.551 Pain in right hip
CPT/HCPCS: 97010; 97012; 97014; 97035; 97110; 97163; 97164; G0283